=== PATIENT | female | born 1960 | race Caucasian/White ===

== ENCOUNTER 2017-11-25 09:41 | Emergency (ER) | payer MEDICAID, OTHER ==
[~2017-11-25] VITALS: Ht 180.3 cm; Wt 108.0 kg
[~2017-11-25 09:41] MED LIST: ABIL5TAB6 PO; CYMB30CA PO; DIAZ5 PO; HYDR-3533 PO; NORV5TAB PO; TIZA4 PO; ZOFR4TAB3 SL
[2017-11-25 09:45] VITALS: BP 171/110; PULSE 97; RESP 16; TEMP 98.4; O2SAT 99
[2017-11-25] MEDS ORDERED: TRAZ100T10 PO (12:56)
[2017-11-25] MEDS ORDERED: AMLO5 PO (12:58)
[2017-11-25] MEDS ORDERED: ZANA4CAP PO (12:58)
[2017-11-25] MEDS ORDERED: CYMB30CA PO (12:58)
[2017-11-25 13:06] VITALS: BP 161/99; PULSE 88; RESP 17; TEMP 97.8; O2SAT 100
[2017-11-25] MEDS ORDERED: SODIUM CHLOR 0.9% 1000 ML INJ 1,000 ML IV SCH (13:45)
[2017-11-25] MEDS ORDERED: SODIUM CHLORIDE 0.9% FLUSH 10 ML FLUSH IV FLUSH PRN (13:45)
[2017-11-25] MEDS ORDERED: PROCHLORPERAZINE INJ 10 MG/2 ML VIAL IVP ONE (14:30)
[2017-11-25] MEDS ORDERED: diphenhydrAMINE HCL 50 MG/ML VIAL IVP ONE (14:30)
--- NOTE | 2017-11-25 14:45 | PD ---
HPI Chief Complaint: Edema Time Seen by Provider: 13:15 Travel History International Travel<30 days: No Contact w/Intl Traveler<30days: No Traveled to known affect area: No History of Present Illness HPI 57-year-old female presents to the emergency department with multiple complaints. First complaint is left calf pain 1-1/2 weeks. Denies injury. Reports swelling to the area that comes and goes, but no swelling at this time. Reports feeling. Numbness and tingling in her foot but denies loss of sensation. Denies recent travel or surgeries. Pain is worse with ambulation, movement, palpation. Denies chest pain. Reports shortness of breath for the past "couple of years", but denies shortness of breath at this time. Says her shortness of breath comes and goes and is worse with activity. Rates pain 4/ 10. Describes as a pulling sensation. Second complaint is a headache 1 week. She does has history of migraines and says that this headache is different. She does report similar symptoms of past migraine headaches such as vomiting, photophobia, and phonophobia. Headache was gradual onset. She reports also feeling fatigued, body aches. Denies fever. Denies recent illness to include nasal congestion, sore throat, ear pain. Reports occasional cough for the past week. Headache is frontal and posterior to the base of the head. Rates pain 7/ 10. Describes it as throbbing. Has tried taking Tylenol and aspirin for symptom management. Says she used to take Imitrex for her migraines but does not have any and has not taken any recently. Her last migraine headache was so long ago she cannot remember. She denies focal deficits or weakness. Denies confusion, disorientation, change in mentation, slurred speech. Reports feeling dizziness at times. Denies lightheadedness. Primary care provider is [facility]. No known allergies. 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 No other modifying factors or associated signs and symptoms. PFSH Past Medical History Cardiovascular Problems: Yes Diminished Hearing: No Fibromyalgia: Yes Gastrointestinal Disorders: Yes (ULCERATIVE COLITIS ) Hypertension: Yes Kidney Stones: Yes Medical other: Yes Musculoskeletal: No Neurologic: No Respiratory: No Immunizations Current: No Ulcer: Yes (ulcerated cholytis) Tetanus Vaccination: > 5 Years Influenza Vaccination: Yes ?: Not Menopausal: Yes : 2 Para: 2 Past Surgical History Abdominal Surgery: Yes (COLON RESECTION 1999) Genitourinary Surgery: Yes (large intestine removed 1999/INTERNAL J POUCH) Tonsillectomy: Yes Other Surgery: Yes (tonsilectomy) Social History Alcohol Use: No Tobacco Use: No Substance Use: No Allergies-Medications (Allergen,Severity, Reaction): Coded Allergies: morphine (Verified Adverse Reaction, Severe, NAUSEA & VOMITING, 11/25/17) Reported Meds & Prescriptions Reported Meds & Active Scripts Active Ibuprofen 800 Mg Tab 800 Mg PO Q6HR PRN Reported Zanaflex (Tizanidine HCl) 4 Mg Cap 4 Mg PO HS Cymbalta DR (Duloxetine HCl) 30 Mg Capdr 30 Mg PO DAILY Norvasc (Amlodipine Besylate) 5 Mg Tab 5 Mg PO DAILY Trazodone (Trazodone HCl) 100 Mg Tablet 100 Mg PO HS Review of Systems Except as stated in HPI: all other systems reviewed are Neg Physical Exam Narrative GENERAL: Well-nourished, well-developed female patient, in no acute distress SKIN: Warm and dry. HEAD: Atraumatic. Normocephalic. No facial droop noted. Tongue midline. Shoulder shrug equal. Finger to nose test normal. EYES: Pupils equal and round at 3 mm with brisk reaction. No scleral icterus. No injection or drainage. PERRLA. EOMI. ENT: Mucosa pink and moist. Airway patent. NECK: Trachea midline. No lymphadenopathy. CARDIOVASCULAR: Regular rate and rhythm. No murmur appreciated. Bilateral ankles with 1+ pitting edema. RESPIRATORY: No accessory muscle use. Breath sounds clear and equal bilaterally. No retractions or tachypnea. GASTROINTESTINAL: Flat. MUSCULOSKELETAL: Left lower extremity is supple and nontender 2+ pedal pulse and sensory intact without erythema or edema; reproducible tenderness to the posterior upper calf; areas without erythema, edema. No obvious deformities. No clubbing. No cyanosis. No edema. NEUROLOGICAL: Awake and alert. Oriented 4. No obvious cranial nerve deficits. Motor grossly within normal limits. Normal speech. No ataxia. No mid -line drift. No upper or lower extremity drift. Slurry Control Operator Helper strength equal bilaterally. Sensory intact and equal bilaterally. Moves all extremities. Active plantar and dorsiflexion and strength equal bilaterally. 5/5 strength to all extremities. PSYCHIATRIC: Appropriate mood and affect; insight and judgment normal. Data Data Last Documented VS Vital Signs Date Time Temp Pulse Resp B/P (MAP) Pulse Ox O2 Delivery O2 Flow Rate FiO2 11/25/17 13:06 97.8 88 17 161/99 (119) 100 Room Air Orders Orders Basic Metabolic Panel (Bmp) (11/25/17 13:45) Comprehensive Metabolic Panel (11/25/17 13:45) Prothrombin Time / Inr (Pt) (11/25/17 13:45) Act Partial Throm Time (Ptt) (11/25/17 13:45) Chest, Single Ap (11/25/17 13:45) Influenzae A/B Antigen (11/25/17 13:45) Electrocardiogram (11/25/17 13:45) Ct Brain W/O Iv Contrast(Rout) (11/25/17 ) Sodium Chlor 0.9% 1000 Ml Inj (Ns 1000 M (11/25/17 13:45) Sodium Chloride 0.9% Flush (Ns Flush) (11/25/17 13:45) Us Leg Venous Doppler (11/25/17 ) Prochlorperazine Inj (Compazine Inj) (11/25/17 14:30) Diphenhydramine Inj (Benadryl Inj) (11/25/17 14:30) Ketorolac Inj (Toradol Inj) (11/25/17 16:15) Ed Discharge Order (11/25/17 16:40) Labs Laboratory Tests Test 11/25/17 14:19 Prothrombin Time 9.7 SEC Prothromb Time International Ratio 1.0 RATIO Activated Partial Thromboplast Time 24.5 SEC Blood Urea Nitrogen 11 MG/DL Creatinine 0.77 MG/DL Random Glucose 87 MG/DL Total Protein 8.1 GM/DL Albumin 3.9 GM/DL Calcium Level 8.8 MG/DL Alkaline Phosphatase 133 U/L Aspartate Amino Transf (AST/SGOT) 31 U/L Alanine Aminotransferase (ALT/SGPT) 24 U/L Total Bilirubin 0.8 MG/DL Sodium Level 142 MEQ/L Potassium Level 3.9 MEQ/L Chloride Level 106 MEQ/L Carbon Dioxide Level 30.2 MEQ/L Anion Gap 6 MEQ/L Estimat Glomerular Filtration Rate 77 ML/MIN MDM Medical Decision Making Medical Screen Exam Complete: Yes Emergency Medical Condition: Yes Medical Record Reviewed: Yes Differential Diagnosis Migraine headache, subarachnoid hemorrhage, intracranial hemorrhage, Narrative Course 57-year-old female with complaint of left calf pain and headache. Neuro exam is unremarkable. Had patient reports having history of migraine and says that this headache is different. CT head, chest x-ray, left leg venous Doppler ultrasound, CBC, CMP, coags, Compazine, Benadryl, normal saline bolus ordered. 1606: CMP unremarkable. Coags unremarkable. CT head, chest x-ray, left leg venous Doppler ultrasound concludes: Chest X-Ray 11/25/17 1345 Signed Impressions: Service Date/Time: Saturday, November 25, 2017 14:18 - CONCLUSION: 1. Minimal linear airspace disease in the left lung base, likely scarring/atelectasis. Brannon Hays MD Lower Extremity Ultrasound 11/25/17 0000 Signed Impressions: Service Date/Time: Saturday, November 25, 2017 14:19 - CONCLUSION: Negative for deep venous thrombosis. . Michael Rodarte MD FACR Head CT 11/25/17 0000 Signed Impressions: Service Date/Time: Saturday, November 25, 2017 15:30 - CONCLUSION: Negative for an acute process. Michael Rodarte MD FACR Discussed radiology findings with the patient. Discussed reasoning to obtain lumbar puncture to rule out acute intracranial process and the patient declined. Toradol ordered. On reexamination patient reports improvement in headache. Rates headache 5/10. Instructed patient to follow up with primary care provider. Patient verbalizes understanding and agreement with treatment plan. Patient is medically cleared and stable for discharge. Discussed reasons to return to the emergency department. Patient agrees with treatment plan. The patients vital signs are stable and the patient is stable for outpatient follow-up and treatment. Patient discharged home, stable and in no acute distress. Diagnosis Primary Impression: Headache Qualified Codes: R51 - Headache Additional Impression: Pain of left calf Referrals: [facility] Primary Care Physician Patient Instructions: Acute Headache (ED), General Instructions, Leg Pain (ED) , Migraine Headache (ED) Additional Instructions: Ibuprofen or Tylenol as directed and as needed to reduce headache Get plenty of rest: do not over sleep rest and relax in a dark, quiet room as needed Place an ice pack on the back of her neck to reduce head pain as needed Keep a headache diary of what triggers her headaches and what treatment is most effective Avoid identifiable triggers Avoid smoking, alcohol and caffeine consumption Reduce stress Follow-up with primary care provider within 1-2 days Follow-up with neurology Return immediately to the emergency department with worsening symptoms Med/Other Pt SpecificInfo: Prescription(s) given Scripts Ibuprofen (Ibuprofen) 800 Mg Tab 800 MG PO Q6HR Y for PAIN, #30 TAB 0 Refills Prov: Crista Mayfield 11/25/17 Disposition: 01 DISCHARGE HOME Condition: Stable Crista Mayfield Nov 25, 2017 14:45
[2017-11-25 15:19] LABS: ALKALINE PHOSPHATASE 133 U/L (45-117); TOTAL BILIRUBIN ADULT 0.8 MG/DL (0.2-1.0); TOTAL PROTEIN 8.1 GM/DL (6.4-8.2)
--- NOTE | 2017-11-25 15:29 | RADRPT ---
EXAM DATE/TIME: 11/25/2017 14:18 [facility] COMPARISON: CT ABDOMEN & PELVIS W/O CONTRAST, June 30, 2015, 15:27. INDICATIONS : Cough, MEDICAL HISTORY : Hypertension. SURGICAL HISTORY : Tonsillectomy. colon resection ENCOUNTER: Initial ACUITY: 1 week PAIN SCORE: 0/10 LOCATION: Bilateral chest FINDINGS: Minimal linear airspace disease in the left lung base. Cardiomediastinal contours are within normal l imits. Bony thorax is intact. CONCLUSION: 1. Minimal linear airspace disease in the left lung base, likely scarring/atelectasis. Brannon Hays MD on November 25, 2017 at 15:25 Board Certified Radiologist. This report was verified electronically.
--- NOTE | 2017-11-25 15:32 | RADRPT ---
EXAM DATE/TIME: 11/25/2017 14:19 [facility] COMPARISON: No previous studies available for comparison. INDICATIONS : Left leg swelling. MEDICAL HISTORY : Hypertension. Ulcerative colitis. Renal calculi. Fibromyalgia. SURGICAL HISTORY : Tonsillectomy. Colon resection. Colectomy. ENCOUNTER: Initial ACUITY: 1 day PAIN SCORE: 5/10 LOCATION: Left leg. TECHNIQUE: Venous ultrasound of the leg was performed from the inguinal ligament to the proximal calf. Real-mary e, color Doppler and spectral tracing, compression and augmentation techniques were used. FINDINGS: There is normal compressibility of the deep venous system from the inguinal region to the proximal ca lf. No echogenic clot is seen in the lumen of the common femoral, femoral, popliteal, and posterior tibial veins. There is a normal response of the venous system to proximal and distal augmentation an d respiration. CONCLUSION: Negative for deep venous thrombosis. . Michael Rodarte MD FACR on November 25, 2017 at 15:30 Board Certified Radiologist. This report was verified electronically.
[2017-11-25 15:33] LABS: PROTHROMBIN TIME - PATIENT 9.7 SEC (9.8-11.6)
[2017-11-25 15:37] LABS: ALBUMIN 3.9 GM/DL (3.4-5.0); ALT (GPT) 24 U/L (10-53); AST (GOT) 31 U/L (15-37); BICARBONATE 30.2 MEQ/L (21.0-32.0); BLOOD UREA NITROGEN 11 MG/DL (7-18); CALCIUM 8.8 MG/DL (8.5-10.1); CHLORIDE 106 MEQ/L (98-107); CREATININE 0.77 MG/DL (0.50-1.00); GLOMERULAR FILTRATION RATE 77 ML/MIN (>89); GLUCOSE,RANDOM 87 MG/DL (74-106); SODIUM (NA) 142 MEQ/L (136-145)
--- NOTE | 2017-11-25 15:46 | RADRPT ---
EXAM DATE/TIME: 11/25/2017 15:30 [facility] COMPARISON: CT BRAIN W/O CONTRAST, October 18, 2010, 9:22. INDICATIONS : Cehpalgia for 1 week. RADIATION DOSE: 56.35 CTDIvol (mGy) MEDICAL HISTORY : Hypertension. SURGICAL HISTORY : Tonsillectomy. Colon resection. ENCOUNTER: Initial ACUITY: 1 week PAIN SCALE: 4/10 LOCATION: cranial TECHNIQUE: Multiple contiguous axial images were obtained of the head. Using automated exposure control and adj ustment of the mA and/or kV according to patient size, radiation dose was kept as low as reasonably a chievable to obtain optimal diagnostic quality images. DICOM format image data is available electro nically for review and comparison. FINDINGS: CEREBRUM: The ventricles are normal for age. No evidence of midline shift, mass lesion, hemorrhage or acute in farction. No extra-axial fluid collections are seen. POSTERIOR FOSSA: The cerebellum and brainstem are intact. The 4th ventricle is midline. The cerebellopontine angle i s unremarkable. EXTRACRANIAL: The visualized portion of the orbits is intact. SKULL: The calvaria is intact. No evidence of skull fracture. CONCLUSION: Negative for an acute process. Michael Rodarte MD FACR on November 25, 2017 at 15:43 Board Certified Radiologist. This report was verified electronically.
[2017-11-25] MEDS ORDERED: KETOROLAC TROMETHAMINE 30 MG/ML (IVP) VIAL IV PUSH ONE (16:15)
--- NOTE | 2017-11-25 16:17 | PD ---
Physical Exam Narrative I, Dr. Dobson, have reviewed the advance practice practitioner's documentation and am in agreement, met with the patient face to face, made the diagnosis, and the medical decision making was done by me. *My assessment and Findings: Migraine headache vs. sinus headache vs. tension headache vs. DVT 57yo F with PMH of migraine headache, fibromyalgia, ulcerative colitis presents to the ED with c/o headache for 1 week. Said it feels like her migraine but last longer than normal. Denies any focal neurologic deficits. Associated with nausea and photophobia. Said she normally takes imitrex for her migraines but has not had it for a while so did not have the medication anymore. Also with left leg edema that seems to be better with elevation. Physical exam shows a well appearing 57yo F. No focal neurologic deficits on exam. Bilatearl lower extremity edema but left is more edematous. No erythema or signs of infection. Labs reviewed, unremarkable. Influenza negative. CXR showed minimal linear airspace disease in left lung base likely atelectasis. CT brain was ordered since pt told my ENTRY LEVEL ACCOUNT EXECUTIVE that this was unlike her migraine headache. CT brain negative. I feel that this is more migraine than SAH but informed her that CT brain is not sensitive for SAH if headache has been 1 week. Pt refusing lumbar puncture at this time and headache has been improved after medication. US LLE: Negative for DVT. Pt now said headache has improved after medication and wants to go home. Return precautions given. Data Data Last Documented VS Vital Signs Date Time Temp Pulse Resp B/P (MAP) Pulse Ox O2 Delivery O2 Flow Rate FiO2 11/25/17 16:50 97.8 78 16 130/77 (94) 99 11/25/17 13:06 Room Air Orders Orders Basic Metabolic Panel (Bmp) (11/25/17 13:45) Comprehensive Metabolic Panel (11/25/17 13:45) Prothrombin Time / Inr (Pt) (11/25/17 13:45) Act Partial Throm Time (Ptt) (11/25/17 13:45) Chest, Single Ap (11/25/17 13:45) Influenzae A/B Antigen (11/25/17 13:45) Electrocardiogram (11/25/17 13:45) Ct Brain W/O Iv Contrast(Rout) (11/25/17 ) Sodium Chlor 0.9% 1000 Ml Inj (Ns 1000 M (11/25/17 13:45) Sodium Chloride 0.9% Flush (Ns Flush) (11/25/17 13:45) Us Leg Venous Doppler (11/25/17 ) Prochlorperazine Inj (Compazine Inj) (11/25/17 14:30) Diphenhydramine Inj (Benadryl Inj) (11/25/17 14:30) Ketorolac Inj (Toradol Inj) (11/25/17 16:15) Ed Discharge Order (11/25/17 16:40) Labs Laboratory Tests Test 11/25/17 14:19 Prothrombin Time 9.7 SEC Prothromb Time International Ratio 1.0 RATIO Activated Partial Thromboplast Time 24.5 SEC Blood Urea Nitrogen 11 MG/DL Creatinine 0.77 MG/DL Random Glucose 87 MG/DL Total Protein 8.1 GM/DL Albumin 3.9 GM/DL Calcium Level 8.8 MG/DL Alkaline Phosphatase 133 U/L Aspartate Amino Transf (AST/SGOT) 31 U/L Alanine Aminotransferase (ALT/SGPT) 24 U/L Total Bilirubin 0.8 MG/DL Sodium Level 142 MEQ/L Potassium Level 3.9 MEQ/L Chloride Level 106 MEQ/L Carbon Dioxide Level 30.2 MEQ/L Anion Gap 6 MEQ/L Estimat Glomerular Filtration Rate 77 ML/MIN [facility] Supervised Visit with LV: Yes Interpretation(s) EKG: NSR 87bpm. Normal axis. Mild ST depression II, III, aVF, V6. Diagnosis Primary Impression: Headache Qualified Codes: R51 - Headache Scripts Ibuprofen (Ibuprofen) 800 Mg Tab 800 MG PO Q6HR Y for PAIN, #30 TAB 0 Refills Prov: Crista Mayfield 11/25/17 Natalie Dobson DO Nov 25, 2017 16:17
[2017-11-25] MEDS ORDERED: IBUP1TAB7 PO (16:39)
[2017-11-25 16:50] VITALS: BP 130/77; TEMP 97.8
--- NOTE | 2017-11-25 19:29 | EKG ---
Date Performed: 11/25/2017 Time Performed: 14:16:28 PTAGE: 57 years EKG: Sinus rhythm NORMAL ECG No significant change from prior electrocardiogram. PREVIOUS TRACING : 11/25/2017 14.11 DOCTOR: Virgil Bazzi Interpretating Date/Time 11/25/2017 19:27:59
== END 2017-11-25 16:50 | disposition home or self-care (01) ==
LOC: NEPD 09:41
DX: R51 Headache (principal); M79.662 Pain in left lower leg; R06.02 Shortness of breath; M79.7 Fibromyalgia; I10 Essential (primary) hypertension; Z90.49 Acquired absence of other specified parts of digestive tract
CPT/HCPCS: 70450; 71045; 80053; 85610; 85730; 87804; 93005; 93971; 96361; 96374; 96375; 99285; J0780; J1200; J7030